=== PATIENT | female | born 1975 | race Caucasian/White ===

== ENCOUNTER → 2017-01-24 | Outpatient (CLI) | payer OTHER ==
[~2017-01-24] MED LIST: COLACE 100MG C100 MG PO; FERROUS SULFAT325 M2 PO; GLUCOPHAGE 500500 MG PO; HYDROCHLOROTHIA25 MG PO; IBUPROFEN600 MG PO; LISINOPRIL5 MG PO; NORCO 5-325 TA1 EACH PO
[2017-01-24 13:26] LABS: HEMOGLOBIN 13.3 gm/dl (12.3-15.3); RED BLOOD COUNT 4.48 M/UL (4.00-5.10); WHITE BLOOD COUNT 7.4 K/UL (4.5-11.0)
[2017-01-24 13:43] LABS: BUN/CREATININE RATIO 23 (0-10)
== END ==
LOC: LAB 11:54
PROVIDERS: Nurse Practitioner Family
DX: D50.9 Iron deficiency anemia, unspecified (principal); E11.9 Type 2 diabetes mellitus without complications; E55.9 Vitamin D deficiency, unspecified; E78.5 Hyperlipidemia, unspecified
CPT/HCPCS: 80053; 80061; 82728; 83540; 83550; 84443; 85025

== ENCOUNTER → 2017-02-05 | Outpatient (CLI) | payer OTHER ==
[2017-02-05 12:45] LABS: HEMOGLOBIN 13.9 gm/dl (12.3-15.3); RED BLOOD COUNT 4.72 M/UL (4.00-5.10); WHITE BLOOD COUNT 8.3 K/UL (4.5-11.0)
[2017-02-05 13:08] LABS: BUN/CREATININE RATIO 16 (0-10)
== END ==
LOC: OPSV2 11:00
PROVIDERS: Obstetrics & Gynecology
DX: Z01.812 Encounter for preprocedural laboratory examination (principal); N92.0 Excessive and frequent menstruation with regular cycle
CPT/HCPCS: 36415; 80048; 81001; 85025

== ENCOUNTER 2017-02-09 06:45 | Day surgery (SDC) | payer OTHER ==
[~2017-02-09] VITALS: Ht 160 cm; Wt 97.5 kg
[2017-02-09] MEDS ORDERED: HYDROCHLOROTHIA25 MG PO (08:21)
[2017-02-09] MEDS ORDERED: LISINOPRIL5 MG PO (08:21)
[2017-02-09] MEDS ORDERED: GLUCOPHAGE 500500 MG PO (08:22)
[2017-02-09] MEDS ORDERED: FERROUS SULFAT325 M2 PO (08:22)
[2017-02-10 04:42] LABS: HEMOGLOBIN 10.8 gm/dl (12.3-15.3)
[2017-02-10] MEDS ORDERED: IBUPROFEN600 MG PO (09:18)
[2017-02-10] MEDS ORDERED: NORCO 5-325 TA1 EACH PO (09:19)
[2017-02-10] MEDS ORDERED: COLACE 100MG C100 MG PO (09:20)
== END 2017-02-10 10:33 | disposition home or self-care (01) ==
LOC: OR 06:45 → M/S 11:58 → OR 02-10 10:33
PROVIDERS: Obstetrics & Gynecology
PROC: 0UTC4ZZ Resection of Cervix, Percutaneous Endoscopic Approach (ICD-10-PCS; 2017-02-09)
PROC: 0UT74ZZ Resection of Bilateral Fallopian Tubes, Percutaneous Endoscopic Approach (ICD-10-PCS; 2017-02-09)
PROC: 0UT94ZZ Resection of Uterus, Percutaneous Endoscopic Approach (ICD-10-PCS; principal; 2017-02-09 08:00)
DX: N72 Inflammatory disease of cervix uteri (principal); D25.9 Leiomyoma of uterus, unspecified; N92.0 Excessive and frequent menstruation with regular cycle; N93.8 Other specified abnormal uterine and vaginal bleeding; D50.9 Iron deficiency anemia, unspecified; I10 Essential (primary) hypertension; J40 Bronchitis, not specified as acute or chronic; K21.9 Gastro-esophageal reflux disease without esophagitis; E11.9 Type 2 diabetes mellitus without complications; F41.9 Anxiety disorder, unspecified; F32.9 Major depressive disorder, single episode, unspecified; Z82.49 Family history of ischemic heart disease and other diseases of the circulatory system; Z88.0 Allergy status to penicillin; Z88.1 Allergy status to other antibiotic agents; Z88.8 Allergy status to other drugs, medicaments and biological substances; Z79.1 Long term (current) use of non-steroidal anti-inflammatories (NSAID); Z79.899 Other long term (current) drug therapy; Z98.51 Tubal ligation status; Z98.890 Other specified postprocedural states
CPT/HCPCS: 0; 85014; 85018; C9113; J0690; J1100; J1885; J2250; J2270; J2405; J2710; J2795; J3010; J7120; Q0163

== ENCOUNTER → 2021-03-21 | Outpatient (CLI) | payer SELFPAY ==
[2021-03-21 11:01] LABS: HEMOGLOBIN 13.9 gm/dl (12.3-15.3); RED BLOOD COUNT 4.63 M/UL (4.00-5.10); WHITE BLOOD COUNT 7.9 K/UL (4.5-11.0)
[2021-03-21 11:58] LABS: BUN/CREATININE RATIO 23 (0-10)
== END ==
LOC: LAB 09:51
PROVIDERS: Internal Medicine
DX: E11.65 Type 2 diabetes mellitus with hyperglycemia (principal); E78.5 Hyperlipidemia, unspecified
CPT/HCPCS: 36415; 80053; 80061; 82043; 83036; 85027

== ENCOUNTER 2022-01-17 07:34 | Emergency (ER) | payer OTHER ==
[2022-01-17] MEDS ORDERED: IBUPROFEN600 MG PO (08:36)
[2022-01-17] MEDS ORDERED: BACTRIM DS TAB1 EACH PO (08:36)
== END 2022-01-17 08:55 | disposition home or self-care (01) ==
LOC: ER1 07:34
DX: L02.211 Cutaneous abscess of abdominal wall (principal); E11.9 Type 2 diabetes mellitus without complications; I10 Essential (primary) hypertension; Z79.84 Long term (current) use of oral hypoglycemic drugs; Z88.0 Allergy status to penicillin
CPT/HCPCS: 10060; 87070; 87205; 99283